=== PATIENT | male | born 1985 | race Caucasian/White ===

== ENCOUNTER 2023-08-08 13:27 | Inpatient (IN) | payer OTHER ==
[2023-08-08] MEDS ORDERED: ACETAMINOPHEN 1000 MG/100 ML BAG IVPB ONE (14:52)
[2023-08-08] MEDS ORDERED: SODIUM CHLORIDE 0.9% 500 ML INFUS.BAG IV ONE (14:52)
[2023-08-08] MEDS ORDERED: ACETAMINOPHEN INJECTION 100 ML IVPB ONE (15:26)
[2023-08-08 15:38] LABS: BASO % 0.6 % (0-2.0); EOS % 2.1 % (0-4.5); HEMATOCRIT 38.5 % (35.4-49); HEMOGLOBIN 12.7 GM/dL (11.7-16.9); LYMPH % 15.2 % (8-40); MCH 26.9 pg (25.7-33.7); MEAN CELL VOLUME 81.6 fl (80-96); MEAN PLT VOLUME 7.5 fl (7.5-11.1); MONO % 8.6 % (3.8-10.2); NEUT % 73.5 % (42.8-82.8); PLATELET COUNT 505 10^3/uL (134-434); RBC 4.72 M/mm3 (4.00-5.60); RDW 16.2 % (11.9-15.9); WHITE BLOOD COUNT 11.6 K/mm3 (4.0-10.0)
[2023-08-08 16:07] LABS: CHLORIDE 101 mmol/L (98-107); POTASSIUM 4.1 mmol/L (3.5-5.1); SODIUM 136 mmol/L (136-145)
[2023-08-08 16:12] LABS: ANION GAP 7 MMOL/L (8-16); BLOOD UREA NITROGEN 5.6 mg/dL (7-18); CO2 28 mmol/L (21-32); MAGNESIUM 2.1 mg/dL (1.8-2.4)
[2023-08-08 16:15] LABS: ALBUMIN 3.3 g/dl (3.4-5.0); CREATININE 0.8 mg/dL (0.55-1.3); PHOSPHOROUS 4.3 mg/dL (2.5-4.9); SGOT/AST 13 U/L (15-37); SGPT/ALT 15 U/L (13-61)
[2023-08-08 16:16] LABS: BILIRUBIN,TOTAL 0.4 mg/dL (0.2-1); TOT PROT 8.6 g/dl (6.4-8.2)
[2023-08-08 16:18] LABS: ALK PHOS 76 U/L (45-117)
[2023-08-08 16:25] LABS: GLUCOSE,RANDOM 93 mg/dL (74-106)
[2023-08-08] MEDS ORDERED: HALOPERIDOL LACTATE 5 MG/ML IM ONE ×2 (18:01→18:16)
[2023-08-09 02:03] LABS: EPI CELLS 14 /uL (0-25.1); HYALINE CASTS 0 /uL (0-3.1); PH,URINE 6.5 (5.0-8.0); URINE APPEARANCE TURBID; URINE BACTERIA 114 /uL (0-1359); URINE BILIRUBIN NEGATIVE (NEGATIVE); URINE COLOR YELLOW; URINE GLUCOSE (UA) NEGATIVE (NEGATIVE); URINE KETONE NEGATIVE (NEGATIVE); URINE LEUK ESTERASE NEGATIVE (NEGATIVE); URINE NITRITE NEGATIVE (NEGATIVE); URINE PROTEIN NEGATIVE (NEGATIVE); URINE RBC 58 /uL (0-23.9); URINE WBC 13 /uL (0-25.8)
[2023-08-09 02:09] LABS: OPIATES, URI NEGATIVE (NEGATIVE)
[2023-08-09 02:10] LABS: METHADONE, UR NEGATIVE (NEGATIVE); URINE AMPHETAMINES NEGATIVE (NEGATIVE); URINE BARBITURATES NEGATIVE (NEGATIVE); URINE BENZODIAZEPINES NEGATIVE (NEGATIVE)
[2023-08-09 02:12] LABS: COCAINE, UR NEGATIVE (NEGATIVE); PHENCYCLIDINE,URINE POSITIVE (NEGATIVE)
[2023-08-09 06:49] LABS: BASO % 0.3 % (0-2.0); EOS % 1.4 % (0-4.5); HEMATOCRIT 37.3 % (35.4-49); LYMPH % 7.3 % (8-40); MCH 26.7 pg (25.7-33.7); MCHC 32.1 g/dl (32.0-35.9); MEAN CELL VOLUME 83.2 fl (80-96); MEAN PLT VOLUME 8.1 fl (7.5-11.1); MONO % 7.1 % (3.8-10.2); NEUT % 83.9 % (42.8-82.8); PLATELET COUNT 480 10^3/uL (134-434); RBC 4.49 M/mm3 (4.00-5.60); RDW 15.8 % (11.9-15.9); WHITE BLOOD COUNT 13.1 K/mm3 (4.0-10.0)
[2023-08-09 07:00] LABS: POTASSIUM 4.3 mmol/L (3.5-5.1)
[2023-08-09 07:01] LABS: CALCIUM 8.8 mg/dL (8.5-10.1)
[2023-08-09 07:02] LABS: BLOOD UREA NITROGEN 6.2 mg/dL (7-18)
[2023-08-09 07:05] LABS: CREATININE 0.7 mg/dL (0.55-1.3)
[2023-08-09 13:20] VITALS: BMI 17.4
[2023-08-10 09:42] LABS: BASO % 0.6 % (0-2.0); EOS % 1.5 % (0-4.5); HEMOGLOBIN 11.4 GM/dL (11.7-16.9); LYMPH % 13.4 % (8-40); MCH 26.8 pg (25.7-33.7); MCHC 32.6 g/dl (32.0-35.9); MEAN CELL VOLUME 82.1 fl (80-96); MEAN PLT VOLUME 7.9 fl (7.5-11.1); MONO % 10.6 % (3.8-10.2); NEUT % 73.9 % (42.8-82.8); PLATELET COUNT 456 10^3/uL (134-434); RBC 4.27 M/mm3 (4.00-5.60); RDW 15.8 % (11.9-15.9); WHITE BLOOD COUNT 11.4 K/mm3 (4.0-10.0)
[2023-08-11] MEDS ORDERED: FLUCONAZOLE 200 MG/NS 100 ML IVPB SCH (10:00)
[2023-08-11] MEDS ORDERED: FLUCONAZOLE 100 MG TABLET (UD) PO SCH (10:00)
[2023-08-11] MEDS: FLUCONAZOLE 100 MG TABLET (UD) PO SCH (12:17)
[2023-08-11] MEDS: clonazePAM 0.5 MG TABLET PO SCH ×2 (13:21→23:13)
[2023-08-11] MEDS: GABAPENTIN 300 MG CAPSULE PO SCH ×2 (13:21→23:14)
[2023-08-11] MEDS: ESCITALOPRAM OXALATE 10 MG TABLET PO SCH (13:21)
[2023-08-11] MEDS: THIAMINE HCL 100 MG TABLET (FP) PO SCH (13:21)
[2023-08-11] MEDS: traZODone HCL 50 MG TABLET (FP) PO SCH (23:11)
[2023-08-12] MEDS: FOLIC ACID 1 MG TABLET (FP) PO SCH (10:26)
[2023-08-12] MEDS: THIAMINE HCL 100 MG TABLET (FP) PO SCH (10:26)
[2023-08-12] MEDS: clonazePAM 0.5 MG TABLET PO SCH ×2 (10:26→21:54)
[2023-08-12] MEDS: GABAPENTIN 300 MG CAPSULE PO SCH ×2 (10:26→21:53)
[2023-08-12] MEDS: MULTIVIT-MINERALS ORAL LIQUID PO SCH (10:37)
[2023-08-12] MEDS: FLUCONAZOLE 100 MG TABLET (UD) PO SCH (10:51)
[2023-08-12 13:39] LABS: BASO % 0.5 % (0-2.0); EOS % 1.6 % (0-4.5); HEMATOCRIT 37.6 % (35.4-49); HEMOGLOBIN 12.7 GM/dL (11.7-16.9); LYMPH % 10.4 % (8-40); MCH 27.4 pg (25.7-33.7); MCHC 33.8 g/dl (32.0-35.9); MEAN PLT VOLUME 7.6 fl (7.5-11.1); MONO % 8.3 % (3.8-10.2); NEUT % 79.2 % (42.8-82.8); PLATELET COUNT 524 10^3/uL (134-434); RBC 4.64 M/mm3 (4.00-5.60); WHITE BLOOD COUNT 11.6 K/mm3 (4.0-10.0)
[2023-08-12] MEDS: NYSTATIN 500,000 UNITS/5 ML SUSPENSION PO SCH ×2 (14:00→19:09)
[2023-08-12 14:02] LABS: POTASSIUM 4.3 mmol/L (3.5-5.1)
[2023-08-12 14:05] LABS: BLOOD UREA NITROGEN 6.3 mg/dL (7-18)
[2023-08-12 14:09] LABS: BILIRUBIN,TOTAL 0.4 mg/dL (0.2-1); TOT PROT 7.9 g/dl (6.4-8.2)
[2023-08-12] MEDS: traZODone HCL 50 MG TABLET (FP) PO SCH (21:53)
[2023-08-12] MEDS: HEPARIN NA (PORCINE) 5,000 UNITS/ML 1ML VIAL SQ SCH (21:54)
[2023-08-13] MEDS: NYSTATIN 500,000 UNITS/5 ML SUSPENSION PO SCH ×5 (01:42→23:32)
[2023-08-13] MEDS: HEPARIN NA (PORCINE) 5,000 UNITS/ML 1ML VIAL SQ SCH ×2 (10:09→22:10)
[2023-08-13] MEDS: ESCITALOPRAM OXALATE 10 MG TABLET PO SCH (10:09)
[2023-08-13] MEDS: GABAPENTIN 300 MG CAPSULE PO SCH ×2 (10:09→22:09)
[2023-08-13] MEDS: clonazePAM 0.5 MG TABLET PO SCH ×2 (10:15→22:10)
[2023-08-13] MEDS: FOLIC ACID 1 MG TABLET (FP) PO SCH (10:15)
[2023-08-13] MEDS: THIAMINE HCL 100 MG TABLET (FP) PO SCH (10:15)
[2023-08-13] MEDS: MULTIVIT-MINERALS ORAL LIQUID PO SCH (10:20)
[2023-08-13] MEDS: FLUCONAZOLE 100 MG TABLET (UD) PO SCH (10:21)
[2023-08-13 11:35] LABS: BASO % 0.9 % (0-2.0); EOS % 2.1 % (0-4.5); HEMATOCRIT 38.5 % (35.4-49); HEMOGLOBIN 13.1 GM/dL (11.7-16.9); LYMPH % 18.6 % (8-40); MCH 27.6 pg (25.7-33.7); MCHC 34.1 g/dl (32.0-35.9); MEAN CELL VOLUME 81.1 fl (80-96); MEAN PLT VOLUME 7.5 fl (7.5-11.1); NEUT % 66.4 % (42.8-82.8); PLATELET COUNT 466 10^3/uL (134-434); RBC 4.74 M/mm3 (4.00-5.60); RDW 16.1 % (11.9-15.9); WHITE BLOOD COUNT 10.6 K/mm3 (4.0-10.0)
[2023-08-13 11:54] LABS: POTASSIUM 4.7 mmol/L (3.5-5.1)
[2023-08-13 11:58] LABS: BLOOD UREA NITROGEN 6.5 mg/dL (7-18); CALCIUM 9.5 mg/dL (8.5-10.1); MAGNESIUM 2.1 mg/dL (1.8-2.4)
[2023-08-13 11:59] LABS: ALBUMIN 2.9 g/dl (3.4-5.0)
[2023-08-13 12:00] LABS: CREATININE 0.9 mg/dL (0.55-1.3)
[2023-08-13 12:02] LABS: BILIRUBIN,TOTAL 0.4 mg/dL (0.2-1); TOT PROT 8.2 g/dl (6.4-8.2)
[2023-08-13] MEDS: traZODone HCL 50 MG TABLET (FP) PO SCH (22:10)
[2023-08-14] MEDS: NYSTATIN 500,000 UNITS/5 ML SUSPENSION PO SCH ×3 (06:53→17:27)
[2023-08-14] MEDS: FOLIC ACID 1 MG TABLET (FP) PO SCH (09:48)
[2023-08-14] MEDS: HEPARIN NA (PORCINE) 5,000 UNITS/ML 1ML VIAL SQ SCH ×2 (09:48→23:10)
[2023-08-14] MEDS: clonazePAM 0.5 MG TABLET PO SCH ×2 (09:48→23:10)
[2023-08-14] MEDS: FLUCONAZOLE 100 MG TABLET (UD) PO SCH (09:48)
[2023-08-14] MEDS: THIAMINE HCL 100 MG TABLET (FP) PO SCH (09:48)
[2023-08-14] MEDS: GABAPENTIN 300 MG CAPSULE PO SCH ×2 (09:48→23:10)
[2023-08-14] MEDS: MULTIVIT-MINERALS ORAL LIQUID PO SCH (09:49)
[2023-08-14 09:52] LABS: BASO % 0.6 % (0-2.0); EOS % 2.1 % (0-4.5); HEMATOCRIT 38.1 % (35.4-49); HEMOGLOBIN 12.4 GM/dL (11.7-16.9); LYMPH % 14.9 % (8-40); MCH 26.9 pg (25.7-33.7); MCHC 32.5 g/dl (32.0-35.9); MEAN CELL VOLUME 82.9 fl (80-96); MONO % 10.4 % (3.8-10.2); PLATELET COUNT 503 10^3/uL (134-434); RDW 15.9 % (11.9-15.9); WHITE BLOOD COUNT 12.7 K/mm3 (4.0-10.0)
[2023-08-14 10:21] LABS: POTASSIUM 4.9 mmol/L (3.5-5.1)
[2023-08-14 10:24] LABS: BLOOD UREA NITROGEN 6.8 mg/dL (7-18); CALCIUM 8.9 mg/dL (8.5-10.1)
[2023-08-14 10:26] LABS: MAGNESIUM 1.9 mg/dL (1.8-2.4)
[2023-08-14 10:27] LABS: CREATININE 0.9 mg/dL (0.55-1.3)
[2023-08-14 10:30] LABS: BILIRUBIN,TOTAL 0.3 mg/dL (0.2-1); TOT PROT 7.7 g/dl (6.4-8.2)
[2023-08-14 12:04] LABS: HIV INTERPRETATION NEGATIVE (NEGATIVE)
[2023-08-14 21:30] LABS: PH,URINE 8.5 (5.0-8.0); URINE APPEARANCE CLEAR; URINE BILIRUBIN NEGATIVE (NEGATIVE); URINE COLOR YELLOW; URINE GLUCOSE (UA) NEGATIVE (NEGATIVE); URINE KETONE NEGATIVE (NEGATIVE); URINE NITRITE NEGATIVE (NEGATIVE); URINE PROTEIN NEGATIVE (NEGATIVE)
[2023-08-14 21:31] LABS: URINE LEUK ESTERASE 1+ (NEGATIVE)
[2023-08-14] MEDS ORDERED: DEXAMETHASONE SOD PHOSPHATE 4 MG/1 ML VIAL IVPUSH ONE (22:10)
[2023-08-14] MEDS: traZODone HCL 50 MG TABLET (FP) PO SCH (23:09)
[2023-08-15] MEDS: NYSTATIN 500,000 UNITS/5 ML SUSPENSION PO SCH ×4 (00:13→17:51)
[2023-08-15 11:04] LABS: HEMATOCRIT 37.2 % (35.4-49); HEMOGLOBIN 12.5 GM/dL (11.7-16.9); MCH 27.4 pg (25.7-33.7); MCHC 33.7 g/dl (32.0-35.9); MEAN CELL VOLUME 81.2 fl (80-96); MEAN PLT VOLUME 7.9 fl (7.5-11.1); PLATELET COUNT 524 10^3/uL (134-434); RBC 4.58 M/mm3 (4.00-5.60); RDW 15.8 % (11.9-15.9); WHITE BLOOD COUNT 10.6 K/mm3 (4.0-10.0)
[2023-08-15] MEDS: HEPARIN NA (PORCINE) 5,000 UNITS/ML 1ML VIAL SQ SCH ×2 (11:10→21:24)
[2023-08-15] MEDS: MULTIVIT-MINERALS ORAL LIQUID PO SCH (11:11)
[2023-08-15] MEDS: ESCITALOPRAM OXALATE 10 MG TABLET PO SCH (11:11)
[2023-08-15] MEDS: FOLIC ACID 1 MG TABLET (FP) PO SCH (11:13)
[2023-08-15] MEDS: THIAMINE HCL 100 MG TABLET (FP) PO SCH (11:14)
[2023-08-15] MEDS: GABAPENTIN 300 MG CAPSULE PO SCH ×2 (11:14→21:24)
[2023-08-15] MEDS: clonazePAM 0.5 MG TABLET PO SCH ×2 (11:14→21:24)
[2023-08-15] MEDS: FLUCONAZOLE 100 MG TABLET (UD) PO SCH (11:18)
[2023-08-15 11:28] LABS: POTASSIUM 4.7 mmol/L (3.5-5.1)
[2023-08-15 11:32] LABS: BLOOD UREA NITROGEN 8.4 mg/dL (7-18); CALCIUM 9.1 mg/dL (8.5-10.1)
[2023-08-15 11:34] LABS: CREATININE 0.9 mg/dL (0.55-1.3)
[2023-08-15 11:36] LABS: BILIRUBIN,TOTAL 0.4 mg/dL (0.2-1); TOT PROT 8.1 g/dl (6.4-8.2)
[2023-08-15 11:36] LABS: ANISOCYTOSIS 1+; MACROCYTOSIS 0
[2023-08-15] MEDS: traZODone HCL 50 MG TABLET (FP) PO SCH (21:24)
[2023-08-16] MEDS: NYSTATIN 500,000 UNITS/5 ML SUSPENSION PO SCH ×4 (00:33→17:52)
[2023-08-16] MEDS: MULTIVIT-MINERALS ORAL LIQUID PO SCH (09:58)
[2023-08-16] MEDS: DEXAMETHASONE 4 MG TABLET (FP) PO SCH ×2 (09:58→22:03)
[2023-08-16] MEDS: HEPARIN NA (PORCINE) 5,000 UNITS/ML 1ML VIAL SQ SCH ×2 (09:58→22:03)
[2023-08-16] MEDS: GABAPENTIN 300 MG CAPSULE PO SCH ×2 (09:59→22:02)
[2023-08-16] MEDS: FOLIC ACID 1 MG TABLET (FP) PO SCH (09:59)
[2023-08-16] MEDS: ESCITALOPRAM OXALATE 10 MG TABLET PO SCH (09:59)
[2023-08-16] MEDS: FLUCONAZOLE 100 MG TABLET (UD) PO SCH (10:01)
[2023-08-16] MEDS: clonazePAM 0.5 MG TABLET PO SCH ×2 (10:01→22:03)
[2023-08-16] MEDS: THIAMINE HCL 100 MG TABLET (FP) PO SCH (10:01)
[2023-08-16] MEDS: traZODone HCL 50 MG TABLET (FP) PO SCH (22:03)
[2023-08-17] MEDS: NYSTATIN 500,000 UNITS/5 ML SUSPENSION PO SCH ×2 (00:15→06:22)
[2023-08-17 06:00] VITALS: BP 120/65; PULSE 68; RESP 20; TEMP 97.9
== END 2023-08-17 06:52 | disposition short-term general hospital (02) | DRG 58 ==
LOC: JER 13:27 → JERBED 16:38 → J8W 08-09 12:59 → OBSVTOIN 08-11 15:08
PROVIDERS: ADMIT Internal Medicine; ATTEND Nurse Practitioner Family
DX: D49.6 Neoplasm of unspecified behavior of brain (principal); B37.0 Candidal stomatitis; E43 Unspecified severe protein-calorie malnutrition; G93.6 Cerebral edema; F20.9 Schizophrenia, unspecified; R13.10 Dysphagia, unspecified; F19.10 Other psychoactive substance abuse, uncomplicated; R62.7 Adult failure to thrive; R68.84 Jaw pain; Z68.1 Body mass index [BMI] 19.9 or less, adult
CPT/HCPCS: 0241U-QW; 36415; 70450-TC; 70486-TC; 70553-TC; 71045-TC-FY; 71046-TC-FY; 72125-TC; 72170-TC-FY; 74230-TC-FY; 80048; 80053; 80307; 81003; 82525; 82962; 83735; 84100; 84443; 85025; 87040; 87086; 87389; 87536; 87635; 87651; 92611-GN; 93005; 93010; 97116-GP; 97161-GP; 99285-25; A9579; G0378; J1644

== ENCOUNTER 2023-09-17 15:24 | Emergency (ER) | payer OTHER ==
[2023-09-17 16:01] VITALS: TEMP 98.2; BMI 22.8
[2023-09-17 17:05] LABS: BASO % 0.4 % (0-2.0); HEMATOCRIT 36.3 % (35.4-49); HEMOGLOBIN 12.2 GM/dL (11.7-16.9); LYMPH % 3.4 % (8-40); MCH 27.9 pg (25.7-33.7); MCHC 33.6 g/dl (32.0-35.9); MEAN PLT VOLUME 7.8 fl (7.5-11.1); MONO % 3.8 % (3.8-10.2); NEUT % 92.4 % (42.8-82.8); PLATELET COUNT 346 10^3/uL (134-434); RBC 4.38 M/mm3 (4.00-5.60); RDW 17.8 % (11.9-15.9); WHITE BLOOD COUNT 14.3 K/mm3 (4.0-10.0)
[2023-09-17 17:16] LABS: INR 0.94 (0.83-1.09); PROTHROMBIN TIME (PATIENT) 10.9 SEC (9.7-13.0)
[2023-09-17 17:18] LABS: ACTIVATED PTT 24.3 SECONDS (25.2-36.5)
[2023-09-17 17:27] LABS: ANISOCYTOSIS 2+; MACROCYTOSIS 0
[2023-09-17 17:29] LABS: POTASSIUM 4.4 mmol/L (3.5-5.1)
[2023-09-17 17:31] LABS: ALBUMIN 3.5 g/dl (3.4-5.0); CALCIUM 8.6 mg/dL (8.5-10.1)
[2023-09-17 17:33] LABS: BLOOD UREA NITROGEN 18.4 mg/dL (7-18)
[2023-09-17 17:35] LABS: CREATININE 0.9 mg/dL (0.55-1.3)
[2023-09-17 17:38] LABS: BILIRUBIN,TOTAL 0.3 mg/dL (0.2-1)
[2023-09-17 17:39] VITALS: RESP 20
[2023-09-17] MEDS ORDERED: LACTATED RINGERS SOLUTION 1000 ML INFUS.BAG IV ONE (17:40)
[2023-09-17 18:56] VITALS: BP 112/63; PULSE 81
== END 2023-09-17 18:55 | disposition short-term general hospital (02) ==
LOC: JER 15:24
DX: R47.81 Slurred speech (principal); G93.9 Disorder of brain, unspecified; R29.810 Facial weakness; R53.1 Weakness; Z20.822 Contact with and (suspected) exposure to COVID-19
CPT/HCPCS: 0241U-QW; 36415; 70450-TC; 71045-TC-FY; 80053; 80061; 82550; 83036; 84484; 85025; 85610; 85730; 86850; 86900; 86901; 93005; 93010; 99285-25

== ENCOUNTER 2024-08-15 10:18 | Inpatient (IN) | payer OTHER ==
[2024-08-15 12:06] LABS: BASO % 0.3 % (0-2.0); EOS % 0.3 % (0-4.5); HEMATOCRIT 41.9 % (35.4-49); HEMOGLOBIN 13.8 GM/dL (11.7-16.9); LYMPH % 7.6 % (8-40); MEAN CELL VOLUME 84.9 fl (80-96); MEAN PLT VOLUME 7.4 fl (7.5-11.1); MONO % 6.2 % (3.8-10.2); NEUT % 85.6 % (42.8-82.8); PLATELET COUNT 314 10^3/uL (134-434); RBC 4.93 M/mm3 (4.00-5.60); RDW 17.6 % (11.9-15.9); WHITE BLOOD COUNT 18.6 K/mm3 (4.0-10.0)
[2024-08-15] MEDS ORDERED: ACETAMINOPHEN INJECTION 100 ML ONE (12:11)
[2024-08-15] MEDS ORDERED: CEFTRIAXONE 1 GM/50 ML BAG ONE (12:11)
[2024-08-15 12:12] LABS: POTASSIUM 3.7 mmol/L (3.5-5.1)
[2024-08-15 12:13] LABS: CALCIUM 9.1 mg/dL (8.5-10.1)
[2024-08-15 12:14] LABS: ALBUMIN 3.8 g/dl (3.4-5.0); BLOOD UREA NITROGEN 8.2 mg/dL (7-18); INR 1.02 (0.83-1.09); PROTHROMBIN TIME (PATIENT) 11.5 SEC (9.7-13.0)
[2024-08-15 12:17] LABS: ACTIVATED PTT 27.4 SECONDS (25.2-36.5)
[2024-08-15 12:19] LABS: BILIRUBIN,TOTAL 0.6 mg/dL (0.2-1); TOT PROT 6.6 g/dl (6.4-8.2)
[2024-08-15] MEDS: SODIUM CHLORIDE 0.9% 500 ML INFUS.BAG IV ONE (12:27)
[2024-08-15] MEDS: CEFTRIAXONE 1,000 MG in DEXTROSE 5%-WATER - 50 ML IVPB ONE (12:27)
[2024-08-15] MEDS: ACETAMINOPHEN 1000 MG/100 ML BAG IVPB ONE (12:27)
[2024-08-15] MEDS ORDERED: AZITHROMYCIN IVPB 500 MG/250 ML BAG IVPB ONE (13:18)
[2024-08-15] MEDS: AZITHROMYCIN IVPB 500 MG in DEXTROSE 5%-WATER - 250 ML IVPB ONE (13:27)
[2024-08-15 14:00] LABS: EPI CELLS 5 /uL (0-25.1); HYALINE CASTS 0 /uL (0-3.1); URINE APPEARANCE CLEAR; URINE BACTERIA 2 /uL (0-1359); URINE BILIRUBIN NEGATIVE (NEGATIVE); URINE COLOR YELLOW; URINE GLUCOSE (UA) NEGATIVE (NEGATIVE); URINE KETONE NEGATIVE (NEGATIVE); URINE LEUK ESTERASE NEGATIVE (NEGATIVE); URINE NITRITE NEGATIVE (NEGATIVE); URINE PROTEIN NEGATIVE (NEGATIVE); URINE RBC 146 /uL (0-23.9); URINE UROBILINOGEN 0.2 mg/dL (0.2-1.0); URINE WBC 3 /uL (0-25.8)
[2024-08-15] MEDS ORDERED: PIPERACILLIN/TAZOB 4.5 GM 4.5 GM/100 ML BAG IVPB ONE (16:17)
[2024-08-15] MEDS ORDERED: ACETAMINOPHEN 500 MG TABLET (FP) PO PRN (16:27)
[2024-08-15] MEDS: LACTATED RINGERS SOLUTION 1,000 ML/1,000 ML INFUS.BAG IV SCH (16:41)
[2024-08-15] MEDS ORDERED: PIPERACILLIN/TAZOB 4.5 GM 4.5 GM in DEXTROSE 5%-WATER 100 ML IVPB SCH ×2 (17:00→20:00)
[2024-08-15] MEDS: PIPERACILLIN/TAZOB 4.5 GM 4.5 GM in DEXTROSE 5%-WATER 100 ML IVPB SCH (20:23)
[2024-08-15] MEDS: HEPARIN NA (PORCINE) 5,000 UNITS/ML 1ML VIAL SQ SCH (21:23)
[2024-08-15] MEDS: GABAPENTIN 300 MG CAPSULE PO SCH (21:24)
[2024-08-15] MEDS: traZODone HCL 100 MG TABLET (FP) PO SCH (21:24)
[2024-08-15] MEDS: DOXYCYCLINE INJECTION 100 MG in DEXTROSE 5%-WATER 100 ML IVPB SCH (21:34)
[2024-08-15] MEDS: azaTHIOprine 50 MG TABLET PO SCH (23:34)
[2024-08-16 08:36] LABS: BASO % 0.6 % (0-2.0); EOS % 0.9 % (0-4.5); HEMATOCRIT 37.9 % (35.4-49); HEMOGLOBIN 12.4 GM/dL (11.7-16.9); LYMPH % 11.6 % (8-40); MCH 28.2 pg (25.7-33.7); MCHC 32.8 g/dl (32.0-35.9); MEAN PLT VOLUME 7.8 fl (7.5-11.1); MONO % 8.7 % (3.8-10.2); NEUT % 78.2 % (42.8-82.8); PLATELET COUNT 283 10^3/uL (134-434); RDW 17.5 % (11.9-15.9); WHITE BLOOD COUNT 13.3 K/mm3 (4.0-10.0)
[2024-08-16 08:50] LABS: POTASSIUM 4.1 mmol/L (3.5-5.1)
[2024-08-16 08:54] LABS: BLOOD UREA NITROGEN 9.3 mg/dL (7-18); CALCIUM 9.4 mg/dL (8.5-10.1); MAGNESIUM 1.8 mg/dL (1.8-2.4)
[2024-08-16] MEDS: FAMOTIDINE 40 MG TABLET PO SCH (09:03)
[2024-08-16] MEDS: ESCITALOPRAM OXALATE 10 MG TABLET PO SCH (09:03)
[2024-08-16] MEDS ORDERED: PATIENT'S OWN MEDICATION (NON-FORMULARY) (Thiamine Hcl [B-1] 100 MG Tablet) PO SCH (10:00)
[2024-08-16] MEDS ORDERED: PATIENT'S OWN MEDICATION (NON-FORMULARY) (Escitalopram Oxalate [Escitalopram Oxalate] 5 MG PO SCH (10:00)
[2024-08-16] MEDS ORDERED: PATIENT'S OWN MEDICATION (NON-FORMULARY) (Famotidine [Pepcid] 40 MG Tablet) PO SCH (10:00)
[2024-08-16] MEDS: THIAMINE 100 MG TABLET PO SCH (10:01)
[2024-08-16] MEDS: predniSONE 20 MG TABLET (UD) PO SCH (10:01)
[2024-08-16 20:28] LABS: URINE AMPHETAMINES NEGATIVE (NEGATIVE); URINE BARBITURATES NEGATIVE (NEGATIVE)
[2024-08-16 20:29] LABS: COCAINE, UR NEGATIVE (NEGATIVE); METHADONE, UR NEGATIVE (NEGATIVE); OPIATES, URI NEGATIVE (NEGATIVE); PHENCYCLIDINE,URINE NEGATIVE (NEGATIVE); URINE BENZODIAZEPINES NEGATIVE (NEGATIVE)
[2024-08-17 10:29] LABS: BASO % 0.5 % (0-2.0); EOS % 2.1 % (0-4.5); HEMATOCRIT 34.9 % (35.4-49); HEMOGLOBIN 11.8 GM/dL (11.7-16.9); LYMPH % 22.4 % (8-40); MCH 28.9 pg (25.7-33.7); MCHC 33.9 g/dl (32.0-35.9); MEAN CELL VOLUME 85.2 fl (80-96); MEAN PLT VOLUME 7.8 fl (7.5-11.1); MONO % 9.8 % (3.8-10.2); NEUT % 65.2 % (42.8-82.8); PLATELET COUNT 277 10^3/uL (134-434); RBC 4.09 M/mm3 (4.00-5.60); RDW 16.9 % (11.9-15.9); WHITE BLOOD COUNT 7.9 K/mm3 (4.0-10.0)
[2024-08-17 10:42] LABS: POTASSIUM 4.1 mmol/L (3.5-5.1)
[2024-08-17 11:01] LABS: BLOOD UREA NITROGEN 9.6 mg/dL (7-18); CALCIUM 9.2 mg/dL (8.5-10.1); MAGNESIUM 2.1 mg/dL (1.8-2.4)
[2024-08-17 11:05] LABS: BILIRUBIN,TOTAL 0.8 mg/dL (0.2-1); TOT PROT 5.7 g/dl (6.4-8.2)
[2024-08-17 11:37] VITALS: BMI 23.1
[2024-08-17] MEDS ORDERED: PIPERACILLIN/TAZOBACTAM 4.5 GM VIAL IVPB ONE (20:15)
[2024-08-18 08:34] LABS: BASO % 0.7 % (0-2.0); EOS % 1.8 % (0-4.5); HEMATOCRIT 36.7 % (35.4-49); HEMOGLOBIN 12.1 GM/dL (11.7-16.9); LYMPH % 23.9 % (8-40); MCH 28.1 pg (25.7-33.7); MCHC 32.9 g/dl (32.0-35.9); MEAN CELL VOLUME 85.3 fl (80-96); MONO % 9.2 % (3.8-10.2); NEUT % 64.4 % (42.8-82.8); PLATELET COUNT 312 10^3/uL (134-434); RDW 16.8 % (11.9-15.9); WHITE BLOOD COUNT 7.8 K/mm3 (4.0-10.0)
[2024-08-18 08:53] LABS: POTASSIUM 4.3 mmol/L (3.5-5.1)
[2024-08-18 08:59] LABS: CALCIUM 9.6 mg/dL (8.5-10.1)
[2024-08-18 09:00] LABS: ALBUMIN 3.2 g/dl (3.4-5.0); BLOOD UREA NITROGEN 10.6 mg/dL (7-18); MAGNESIUM 2.1 mg/dL (1.8-2.4)
[2024-08-18 09:04] LABS: BILIRUBIN,TOTAL 0.6 mg/dL (0.2-1); TOT PROT 6.1 g/dl (6.4-8.2)
[2024-08-18] MEDS: DOXYCYCLINE HYCLATE 100 MG CAPSULE PO SCH (10:44)
[2024-08-18] MEDS: MULTIVIT-MINERALS ORAL LIQUID PO SCH (10:44)
[2024-08-19 07:26] LABS: POTASSIUM 3.8 mmol/L (3.5-5.1)
[2024-08-19 07:29] LABS: CALCIUM 9.5 mg/dL (8.5-10.1)
[2024-08-19 07:30] LABS: ALBUMIN 3.3 g/dl (3.4-5.0); BLOOD UREA NITROGEN 15.7 mg/dL (7-18); MAGNESIUM 2.1 mg/dL (1.8-2.4)
[2024-08-19 07:32] LABS: BASO % 0.8 % (0-2.0); EOS % 1.8 % (0-4.5); HEMATOCRIT 38.6 % (35.4-49); HEMOGLOBIN 12.6 GM/dL (11.7-16.9); LYMPH % 29.5 % (8-40); MCH 28.3 pg (25.7-33.7); MCHC 32.8 g/dl (32.0-35.9); MEAN CELL VOLUME 86.2 fl (80-96); MEAN PLT VOLUME 7.9 fl (7.5-11.1); MONO % 10.8 % (3.8-10.2); NEUT % 57.1 % (42.8-82.8); PLATELET COUNT 323 10^3/uL (134-434); RBC 4.47 M/mm3 (4.00-5.60); RDW 17.1 % (11.9-15.9); WHITE BLOOD COUNT 7.5 K/mm3 (4.0-10.0)
[2024-08-19 07:33] LABS: CREATININE 1.1 mg/dL (0.55-1.3)
[2024-08-19 07:35] LABS: BILIRUBIN,TOTAL 0.8 mg/dL (0.2-1); TOT PROT 6.2 g/dl (6.4-8.2)
[2024-08-20 09:54] LABS: BASO % 0.6 % (0-2.0); EOS % 1.5 % (0-4.5); HEMATOCRIT 38.9 % (35.4-49); HEMOGLOBIN 12.7 GM/dL (11.7-16.9); MCH 27.9 pg (25.7-33.7); MCHC 32.6 g/dl (32.0-35.9); MEAN CELL VOLUME 85.8 fl (80-96); MEAN PLT VOLUME 8.1 fl (7.5-11.1); MONO % 10.1 % (3.8-10.2); NEUT % 59.8 % (42.8-82.8); PLATELET COUNT 340 10^3/uL (134-434); RBC 4.54 M/mm3 (4.00-5.60); RDW 16.8 % (11.9-15.9); WHITE BLOOD COUNT 9.1 K/mm3 (4.0-10.0)
[2024-08-20 10:23] LABS: CALCIUM 9.3 mg/dL (8.5-10.1)
[2024-08-20 10:24] LABS: ALBUMIN 3.3 g/dl (3.4-5.0); BLOOD UREA NITROGEN 17.3 mg/dL (7-18); MAGNESIUM 2.2 mg/dL (1.8-2.4)
[2024-08-20 10:26] LABS: BILIRUBIN,TOTAL 0.4 mg/dL (0.2-1); TOT PROT 6.3 g/dl (6.4-8.2)
[2024-08-20 10:27] LABS: CREATININE 0.9 mg/dL (0.55-1.3)
[2024-08-20] MEDS ORDERED: LIDOCAINE 1%/EPI 1:100000 (20 ML MULTI DOSE VIAL) ONE (14:17)
[2024-08-20] MEDS: ceFAZolin SODIUM 1 GM VIAL IVPB ONE (14:23)
[2024-08-20] MEDS: LIDOCAINE 1%/EPI 1:100000 (20 ML MULTI DOSE VIAL) IJ ONE (14:24)
[2024-08-20] MEDS: VANCOMYCIN 1 GM in NS (PRE-DOCKED) 1,000 MG/250 ML (RESTRICTED TO ID ONLY) IVPB ONE (14:24)
[2024-08-20] MEDS ORDERED: SUGAMMADEX SODIUM 200 MG/2 ML VIAL ONE (14:32)
[2024-08-20] MEDS ORDERED: SUCCINYLCHOLINE CHLORIDE 200 MG/10 ML SYRINGE ONE (14:46)
[2024-08-20] MEDS ORDERED: PROPOFOL 20 ML ONE (14:46)
[2024-08-20] MEDS ORDERED: MIDAZOLAM HCL 2 MG/2 ML SINGLE DOSE VIAL ONE (14:46)
[2024-08-22 22:50] VITALS: RESP 20
[2024-08-23 07:40] VITALS: BP 98/59; PULSE 54; TEMP 98.4
[2024-08-23] MEDS: FAMOTIDINE 20 MG TABLET PO SCH (10:44)
== END 2024-08-23 17:47 | disposition home or self-care (01) | DRG 720 ==
LOC: JER 10:18 → JERBED 14:44 → J7W 17:29
PROVIDERS: ADMIT Internal Medicine
DX: A41.89 Other specified sepsis (principal); C71.9 Malignant neoplasm of brain, unspecified; J69.0 Pneumonitis due to inhalation of food and vomit; G92.8 Other toxic encephalopathy; F20.9 Schizophrenia, unspecified; R47.01 Aphasia; D72.829 Elevated white blood cell count, unspecified; R41.82 Altered mental status, unspecified; F32.9 Major depressive disorder, single episode, unspecified; R47.1 Dysarthria and anarthria
CPT/HCPCS: 0241U-QW; 36415; 70450-TC; 70553-TC; 71045-TC-FY; 74230-TC-FY; 80048; 80053; 80307; 81003; 82962; 83036; 83735; 85025; 85610; 85730; 87040; 87086; 87899; 92611-GN; 93005; 93010; 97116-GP; 97162-GP; 99285-25; J0131; J1644

== ENCOUNTER 2025-05-18 15:47 | Inpatient (IN) | payer OTHER ==
[2025-05-18 16:53] LABS: RDW 16.6 % (12.0-15.6)
[2025-05-18 16:55] LABS: IMMATURE PLATELET FRACTION # 6.20 x10^3/uL; MCHC 32.1 g/dl (32.3-36.5); MEAN CELL VOLUME 92.2 fl (79.0-92.2); MEAN PLT VOLUME 11.1 fl (9.4-12.4)
[2025-05-18 16:59] LABS: EPI CELLS 2 /uL (0-25.1); HYALINE CASTS 0 /uL (0-3.1); URINE APPEARANCE CLEAR; URINE BACTERIA 1 /uL (0-1359); URINE BILIRUBIN NEGATIVE (NEGATIVE); URINE COLOR YELLOW; URINE GLUCOSE (UA) NEGATIVE (NEGATIVE); URINE KETONE NEGATIVE (NEGATIVE); URINE LEUK ESTERASE NEGATIVE (NEGATIVE); URINE NITRITE NEGATIVE (NEGATIVE); URINE PROTEIN NEGATIVE (NEGATIVE); URINE RBC 15 /uL (0-23.9); URINE UROBILINOGEN 0.2 mg/dL (0.2-1.0); URINE WBC 1 /uL (0-25.8)
[2025-05-18 17:01] LABS: INR 1.04 (0.83-1.09); PROTHROMBIN TIME (PATIENT) 11.3 SEC (9.7-13.0)
[2025-05-18 17:04] LABS: ACTIVATED PTT 25.5 SECONDS (25.2-36.5)
[2025-05-18 17:18] LABS: CO2 26.0 mmol/L (21-32); GLUCOSE,RANDOM 98.0 mg/dL (74-106)
[2025-05-18 17:20] LABS: CREATININE 0.9 mg/dL (0.55-1.3); SGPT/ALT 24.0 U/L (13-61)
[2025-05-18 17:21] LABS: SGOT/AST 28.0 U/L (15-37)
[2025-05-18 17:22] LABS: TOT PROT 6.3 g/dl (6.4-8.2)
[2025-05-18 17:23] LABS: ALK PHOS 67.0 U/L (45-117)
[2025-05-18] MEDS ORDERED: ACETAMINOPHEN 325 MG TABLET (FP) PO PRN (21:05)
[2025-05-18] MEDS ORDERED: MORPHINE SULFATE 2 MG/ML SYRINGE IM PRN (21:05)
[2025-05-18] MEDS ORDERED: traZODone HCL 100 MG TABLET (FP) ONE (21:35)
[2025-05-18] MEDS ORDERED: GABAPENTIN 300 MG CAPSULE ONE (21:35)
[2025-05-18] MEDS: SODIUM CHLORIDE 1,000 ML IV SCH (21:45)
[2025-05-18] MEDS: GABAPENTIN 300 MG CAPSULE PO SCH (21:45)
[2025-05-18] MEDS: traZODone HCL 100 MG TABLET (FP) PO SCH (21:45)
[2025-05-19 00:35] VITALS: BMI 21.9
[2025-05-19 07:30] LABS: MCHC 32.7 g/dl (32.3-36.5); MEAN CELL VOLUME 91.4 fl (79.0-92.2); MEAN PLT VOLUME 10.3 fl (9.4-12.4); RDW 16.3 % (12.0-15.6)
[2025-05-19 07:35] LABS: INR 1.1 (0.83-1.09); PROTHROMBIN TIME (PATIENT) 12.0 SEC (9.7-13.0)
[2025-05-19 07:58] LABS: CO2 25.0 mmol/L (21-32)
[2025-05-19 07:59] LABS: GLUCOSE,RANDOM 85.0 mg/dL (74-106)
[2025-05-19 08:02] LABS: CREATININE 0.7 mg/dL (0.55-1.3); SGOT/AST 10.0 U/L (15-37); SGPT/ALT 20.0 U/L (13-61)
[2025-05-19 08:03] LABS: TOT PROT 6.1 g/dl (6.4-8.2)
[2025-05-19 08:05] LABS: ALK PHOS 62.0 U/L (45-117)
[2025-05-19] MEDS: ACETAMINOPHEN 500 MG TABLET (FP) PO SCH (08:39)
[2025-05-19] MEDS: THIAMINE 100 MG TABLET PO SCH (10:12)
[2025-05-19] MEDS: FAMOTIDINE 20 MG TABLET PO SCH (10:12)
[2025-05-19] MEDS: ENOXAPARIN NA (PORCINE) 40 MG/0.4 ML DISP.SYRIN SQ SCH (10:12)
[2025-05-19] MEDS: ESCITALOPRAM OXALATE 10 MG TABLET PO SCH (10:17)
[2025-05-19] MEDS: MIDODRINE HCL 5 MG TABLET PO SCH ×2 (10:18→17:50)
[2025-05-20 06:56] LABS: ABSOLUTE IMMATURE GRANULOCYTES 0.03 x10^3/uL (0.0-0.031); BASOPHILS # 0.03 x10^3/uL (0.01-0.08); EOSINOPHIL % 1.8 % (0.8-7.0); EOSINOPHILS # 0.14 x10^3/uL (0.04-0.54); MCHC 32.4 g/dl (32.3-36.5); MEAN CELL VOLUME 91.9 fl (79.0-92.2); MEAN PLT VOLUME 10.5 fl (9.4-12.4); MONOCYTE # 0.67 x10^3/uL (0.30-0.82); MONOCYTE % 8.5 % (5.3-12.2); RDW 16.0 % (12.0-15.6)
[2025-05-20 07:20] LABS: CO2 25.0 mmol/L (21-32); GLUCOSE,RANDOM 61.0 mg/dL (74-106)
[2025-05-20 07:23] LABS: CREATININE 0.9 mg/dL (0.55-1.3)
[2025-05-20] MEDS ORDERED: DEXTROSE 50%-WATER 25 GM/50 ML DISP.SYRIN IVPUSH PRN (09:25)
[2025-05-20] MEDS: DEXTROSE 50%-WATER 25 GM/50 ML DISP.SYRIN IVPUSH ONE (09:46)
[2025-05-20] MEDS: predniSONE 10 MG TABLET (UD) PO SCH (11:12)
[2025-05-20] MEDS: LIDOCAINE 5% TOPICAL PATCH TP SCH (11:49)
[2025-05-20] MEDS: MIDODRINE HCL 5 MG TABLET PO SCH (17:35)
[2025-05-20] MEDS: GABAPENTIN 300 MG CAPSULE PO SCH (21:31)
[2025-05-20] MEDS: LIDOCAINE PATCH REMOVAL MC SCH (22:33)
[2025-05-21 08:45] LABS: ABSOLUTE IMMATURE GRANULOCYTES 0.04 x10^3/uL (0.0-0.031); BASOPHILS # 0.03 x10^3/uL (0.01-0.08); EOSINOPHIL % 1.2 % (0.8-7.0); EOSINOPHILS # 0.09 x10^3/uL (0.04-0.54); MCHC 33.2 g/dl (32.3-36.5); MEAN CELL VOLUME 90.4 fl (79.0-92.2); MEAN PLT VOLUME 10.5 fl (9.4-12.4); MONOCYTE # 0.82 x10^3/uL (0.30-0.82); MONOCYTE % 10.6 % (5.3-12.2); RDW 15.3 % (12.0-15.6)
[2025-05-21 09:11] LABS: CO2 26.0 mmol/L (21-32); GLUCOSE,RANDOM 82.0 mg/dL (74-106)
[2025-05-21 09:14] LABS: SGOT/AST 18.0 U/L (15-37); SGPT/ALT 30.0 U/L (13-61)
[2025-05-21 09:15] LABS: CREATININE 0.8 mg/dL (0.55-1.3)
[2025-05-21 09:16] LABS: TOT PROT 6.6 g/dl (6.4-8.2)
[2025-05-21 09:17] LABS: ALK PHOS 89.0 U/L (45-117)
[2025-05-21] MEDS: FERROUS SO4 325 MG TABLET (FP) PO SCH (09:34)
[2025-05-21] MEDS: FAMOTIDINE 20 MG TABLET PO SCH (09:35)
[2025-05-23] MEDS: MIDODRINE HCL 5 MG TABLET PO ONE (08:07)
[2025-05-23] MEDS: SODIUM CHLORIDE 1,000 ML IV SCH (13:28)
[2025-05-25] MEDS ORDERED: CARBAMIDE PEROXIDE 6.5% OTIC 15 ML BOTTLE AD SCH (10:45)
[2025-05-25 11:16] LABS: ABSOLUTE IMMATURE GRANULOCYTES 0.03 x10^3/uL (0.0-0.031); BASOPHILS # 0.03 x10^3/uL (0.01-0.08); EOSINOPHIL % 1.3 % (0.8-7.0); EOSINOPHILS # 0.10 x10^3/uL (0.04-0.54); MCHC 32.2 g/dl (32.3-36.5); MEAN CELL VOLUME 91.0 fl (79.0-92.2); MEAN PLT VOLUME 10.4 fl (9.4-12.4); MONOCYTE # 0.57 x10^3/uL (0.30-0.82); MONOCYTE % 7.2 % (5.3-12.2); RDW 15.6 % (12.0-15.6)
[2025-05-25 11:41] LABS: CO2 28.0 mmol/L (21-32); GLUCOSE,RANDOM 93.0 mg/dL (74-106)
[2025-05-25 11:44] LABS: CREATININE 1.0 mg/dL (0.55-1.3); SGOT/AST 16.0 U/L (15-37); SGPT/ALT 35.0 U/L (13-61)
[2025-05-25 11:46] LABS: TOT PROT 6.6 g/dl (6.4-8.2)
[2025-05-25 11:47] LABS: ALK PHOS 82.0 U/L (45-117)
[2025-05-25] MEDS: traZODone HCL 50 MG TABLET (FP) PO SCH (21:44)
[2025-05-27] MEDS: KETOROLAC TROMETHAMINE 10 MG TABLET PO PRN (18:03)
[2025-05-28] MEDS ORDERED: DEXTROSE 50%-WATER 25 GM/50 ML DISP.SYRIN IVPUSH PRN (12:01)
[2025-05-29] MEDS: SODIUM CHLORIDE 500 ML IV STA (10:42)
[2025-05-30] MEDS: ENOXAPARIN NA (PORCINE) 40 MG/0.4 ML DISP.SYRIN SQ SCH (15:38)
[2025-06-03 08:43] LABS: MCHC 32.1 g/dl (32.3-36.5); MEAN CELL VOLUME 92.2 fl (79.0-92.2); MEAN PLT VOLUME 10.3 fl (9.4-12.4); RDW 15.9 % (12.0-15.6)
[2025-06-03 09:42] LABS: ALK PHOS 103.0 U/L (45-117); CO2 27.0 mmol/L (21-32); CREATININE 0.9 mg/dL (0.55-1.3); GLUCOSE,RANDOM 80.0 mg/dL (74-106); SGOT/AST 16.0 U/L (15-37); SGPT/ALT 74.0 U/L (13-61); TOT PROT 5.8 g/dl (6.4-8.2)
[2025-06-04 08:24] LABS: ABSOLUTE IMMATURE GRANULOCYTES 0.20 x10^3/uL (0.0-0.031); BASOPHILS # 0.05 x10^3/uL (0.01-0.08); EOSINOPHIL % 1.1 % (0.8-7.0); EOSINOPHILS # 0.11 x10^3/uL (0.04-0.54); MCHC 30.8 g/dl (32.3-36.5); MEAN CELL VOLUME 94.5 fl (79.0-92.2); MEAN PLT VOLUME 11.5 fl (9.4-12.4); MONOCYTE # 0.84 x10^3/uL (0.30-0.82); MONOCYTE % 8.6 % (5.3-12.2); RDW 15.9 % (12.0-15.6)
[2025-06-07 03:18] VITALS: RESP 18
[2025-06-07] MEDS ORDERED: MELATONIN 5 MG TABLETS PO PRN (17:41)
[2025-06-07] MEDS: hydrOXYzine PAMOATE 25 MG CAPSULE (FP) PO ONE (21:46)
[2025-06-09 10:07] VITALS: BP 95/60; PULSE 77; TEMP 98.1
== END 2025-06-09 11:58 | disposition home or self-care (01) | DRG 347 ==
LOC: JER 15:47 → JERBED 22:02 → J6S 23:18
PROVIDERS: ADMIT Hospitalist; ATTEND Internal Medicine
DX: S32.011A Stable burst fracture of first lumbar vertebra, initial encounter for closed fracture (principal); D49.6 Neoplasm of unspecified behavior of brain; L30.9 Dermatitis, unspecified; F20.9 Schizophrenia, unspecified; F12.90 Cannabis use, unspecified, uncomplicated; F14.90 Cocaine use, unspecified, uncomplicated; R47.81 Slurred speech; I95.89 Other hypotension; R26.89 Other abnormalities of gait and mobility; E44.0 Moderate protein-calorie malnutrition; Z68.22 Body mass index [BMI] 22.0-22.9, adult; R00.1 Bradycardia, unspecified; R47.1 Dysarthria and anarthria; W18.39XA Other fall on same level, initial encounter; Y93.89 Activity, other specified; Y92.098 Other place in other non-institutional residence as the place of occurrence of the external cause; Y99.8 Other external cause status
CPT/HCPCS: 0241U-QW; 36415; 70450-TC; 71045-TC-FY; 72100-TC-FY; 72125-TC; 72131-TC; 72146-TC; 72148-TC; 72170-TC-FY; 80048; 80053; 81003; 82962; 83605; 83735; 84100; 84443; 84484; 85025; 85027; 85610; 85730; 87086; 93005; 93010; 93306-TC; 97116-GP; 97162-GP; 99285-25